=== PATIENT | male | born 1950 | race Two or more races ===

== ENCOUNTER 2023-04-07 16:27 | Emergency (ER) | payer OTHER ==
[2023-04-07 17:55] LABS: Absolute Lymphocytes (CBC) 0.8 K/uL (0.7-4.9); Hematocrit 37.6 % (39.6-49.0); Lymphocytes % 13.9 % (15.3-44.8); MCV 92.6 fL (80-100); MPV 9.2 fL (7.6-11.3); RBC Red Blood Cell Count 4.06 M/uL (4.33-5.43)
[2023-04-07] MEDS ORDERED: NA CHLORIDE 0.9% 500 ML ONE (17:56)
[2023-04-07] MEDS ORDERED: FAMOTIDINE 20 MG/2 ML VIAL IV ONE (17:56)
[2023-04-07] MEDS ORDERED: METHYLPREDNISOLONE 125 MG INJ ONE (17:56)
[2023-04-07] MEDS ORDERED: predniSONE 20 MG TAB ONE (17:56)
[2023-04-07] MEDS ORDERED: DIPHENHYDRAMINE 50 MG/ML VIAL ONE (17:56)
[2023-04-07 18:05] LABS: Protime INR 1.2
--- NOTE | 2023-04-07 18:06 | RAD REPORT ---
EXAM DESCRIPTION: Adolph Single View04/07/2023 5:54 pm CLINICAL HISTORY: cough COMPARISON: none FINDINGS: The lungs appear clear of acute infiltrate. The heart is mildly to moderately enlarged. Postsurgical changes involve the chest. Pacemaker leads in place IMPRESSION: No acute abnormalities displayed
[2023-04-07 18:30] LABS: Albumin 3.5 g/dL (3.4-5.0); Bilirubin Direct 0.2 mg/dL (0-0.2); Bilirubin Indirect, Calculated 0.2 mg/dL (0.2-0.8); Bilirubin Total 0.4 mg/dL (0.2-1.0); Magnesium 2.6 mg/dL (1.6-2.4); Potassium 4.1 mEq/L (3.5-5.1); Protein, Total 6.9 g/dL (6.4-8.2); Thyroid Stimulating Hormone 2.32 uIU/mL (0.358-3.740); Troponin High Sensitivity 23.9 pg/mL (<58.9)
[2023-04-07] MEDS ORDERED: CEFAZOLIN SODIUM 1 GM/VIAL ONE (18:47)
[2023-04-07] MEDS ORDERED: CEPHALEXIN 250 MG CAP ONE (18:47)
--- NOTE | 2023-04-07 19:06 | ER ---
Nurse's Notes [facility] Name: Estrada Workman Age: 72 yrs Sex: Male : 1950 Arrival Date: 04/07/2023 Time: 16:27 Bed 19 Private MD: Diagnosis: Insect bite (nonvenomous) of ankle;Presence of cardiac pacemaker-DEFIBRILLATOR;Insect allergy status Presentation: 04/07 16:40 Chief complaint: Patient states: "I was mowing grass this morning, and was standing in [facility] a pile of fire ants. They started biting on my right foot and a few on my left. 1 hr after getting bit, my heart is acting up. SOB, my left jaw hurts, arm is cramping, my heart feels like it's double pumping. I can feel my pacemaker having to work extra.". Coronavirus screen: Vaccine status: Patient reports receiving the 2nd dose of the covid vaccine. Ebola Screen: No symptoms or risks identified at this time. Initial Sepsis Screen: Does the patient meet any 2 criteria? No. Patient's initial sepsis screen is negative. Does the patient have a suspected source of infection? No. Patient's initial sepsis screen is negative. Risk Assessment: Do you want to hurt yourself or someone else? Patient reports no desire to harm self or others. Onset of symptoms was April 07, 2023. 16:40 Method Of Arrival: Ambulatory [facility] 16:40 Acuity: LEANN 3 mb9 Triage Assessment: 16:44 Bite description: bite sustained to right foot and left foot by a fire ant. General: mb9 Appears in no apparent distress. Behavior is calm, cooperative. Pain: Complains of pain in right foot and left foot. EENT: No signs and/or symptoms were reported regarding the EENT system. Neuro: Mayer Agitation-Sedation Scale (RASS): 0 - Alert and Calm Level of Consciousness is awake, alert, obeys commands, Oriented to person, place, time, situation, Appropriate for age. Cardiovascular: Reports shortness of breath. Respiratory: Airway is patent Respiratory effort is even, unlabored, Respiratory pattern is regular, symmetrical. Derm: Skin is pink, warm \\T\\ dry. Musculoskeletal: Range of motion: intact in all extremities. Injury Description: Bite sustained to right foot and left foot caused by a fire ant, is superficial. 19:25 Bite description: animal information: vaccination(s) is not applicable. rv Historical: - Allergies: 16:42 Losartan; mb9 16:42 Lisinopril; mb9 - Home Meds: 16:42 carvedilol oral [Active]; atorvastatin oral [Active]; Plavix Oral [Active]; mb9 - PMHx: 16:42 Myocardial infarction; Bladder cancer; mb9 - PSHx: 16:42 Pacemaker; Stents x 12; mb9 - Immunization history:: Adult Immunizations up to date. - Social history:: Smoking status: Patient denies any tobacco usage or history of. Screenin:43 [facility] ED Fall Risk Assessment (Adult) History of falling in the last 3 months, sg5 including since admission No falls in past 3 months (0 pts). Abuse screen: Denies threats or abuse. Nutritional screening: No deficits noted. Tuberculosis screening: No symptoms or risk factors identified. Assessment: 18:43 General: Appears in no apparent distress. comfortable, Behavior is calm, cooperative, sg5 appropriate for age. Pain: Complains of pain in right leg and anterior aspect of right ankle and right ogmez and medial aspect of right calf and right Achilles and right calf and right ankle and lateral aspect of right calf and left foot and right foot. Neuro: Level of Consciousness is awake, alert, obeys commands, Oriented to person, place, time, situation, Appropriate for age. Cardiovascular: Capillary refill < 3 seconds Patient's skin is warm and dry. Respiratory: Airway is patent Trachea midline Respiratory effort is even, unlabored. GI: No signs and/or symptoms were reported involving the gastrointestinal system. : No signs and/or symptoms were reported regarding the genitourinary system. EENT: No signs and/or symptoms were reported regarding the EENT system. Derm: Skin is intact, redness and inflammation to bilateral lower legs. Vital Signs: 16:40 BP 124 / 77; Pulse 68; Resp 18; Temp 98.2; Pulse Ox 100% on R/A; Weight 79.38 kg; mb9 Height 5 ft. 9 in. ; Pain 8/10; 18:43 BP 125 / 78; Pulse 78; Resp 16; Pulse Ox 98% on R/A; sg5 16:40 Body Mass Index 25.84 (79.38 kg, 175.26 cm) mb9 16:40 Pain Scale: Adult mb9 [place] Coma Score: 19:25 Eye Response: spontaneous(4). Motor Response: obeys commands(6). Verbal Response: rv oriented(5). Total: 15. ED Course: 16:31 Patient arrived in ED. am2 16:42 Triage completed. mb9 16:44 Arm band placed on. mb9 16:49 Shane Arcos MD is Attending Physician. gavin 17:17 Ekaterina Ramey RN is Primary Nurse. sg5 17:42 Inserted saline lock: 20 gauge in right antecubital area, using aseptic technique. sg5 Blood collected. 17:56 XRAY Chest (1 view) In Process Unspecified. EDMS 18:43 Patient has correct armband on for positive identification. Call light in reach. Side sg5 rails up X 1. Valuables Left with patient. Provided Education on: medication, IV, lab testing. 19:06 Pj Luciano MD is Referral Physician. gavin 19:25 No provider procedures requiring assistance completed. IV discontinued, intact, rv bleeding controlled, No redness/swelling at site. Pressure dressing applied. Administered Medications: 17:57 Drug: diphenhydrAMINE IVP 25 mg Route: IVP; Site: right antecubital; sg5 19:24 Follow up: Response: No adverse reaction; Marked relief of symptoms rv 17:57 Drug: MethylPrednisoLONE IVP 125 mg Route: IVP; Site: right antecubital; sg5 19:24 Follow up: Response: No adverse reaction; Marked relief of symptoms rv 17:57 Drug: predniSONE PO 40 mg Route: PO; sg5 19:24 Follow up: Response: No adverse reaction; Marked relief of symptoms rv 17:58 Drug: NS 0.9% IV 500 ml Route: IV; Rate: bolus; Site: right antecubital; sg5 19:24 Follow up: IV Status: Order to discontinue infusion rv 17:58 Drug: Famotidine IVP 20 mg Route: IVP; Site: right antecubital; sg5 19:24 Follow up: Response: No adverse reaction; Marked relief of symptoms rv 18:42 Drug: ceFAZolin IVPB 1 grams Route: IVPB; Site: right antecubital; sg5 19:25 Follow up: Response: No adverse reaction; Marked relief of symptoms; IV Status: rv Completed infusion 18:42 Drug: Cephalexin PO 500 mg Route: PO; sg5 19:25 Follow up: Response: No adverse reaction; Marked relief of symptoms rv Medication: 16:45 VIS not applicable for this client. mb9 Outcome: 19:06 Discharge ordered by . gavin 19:26 Discharged to home ambulatory. rv 19:26 Condition: improved 19:26 Discharge instructions given to patient, Instructed on discharge instructions, follow up and referral plans. medication usage, Demonstrated understanding of instructions, follow-up care, medications, Prescriptions given X 4. 19:26 Patient left the ED. rv Signatures: Dispatcher [employer] EDMS Shane Arcos MD MD cha Moreno, Amanda am2 Simeon Ramirez RN RN rv Vidhya Hardwick RN RN mb9 Ekaterina Ramey RN RN sg5 Corrections: (The following items were deleted from the chart) 16:44 16:42 PMHx: Hypertensive disorder; mb9 mb9
--- NOTE | 2023-04-07 19:06 | EDPHYS ---
Physician Documentation [facility] Name: Estrada Workman Age: 72 yrs Sex: Male : 1950 Arrival Date: 04/07/2023 Time: 16:27 Bed 19 Private MD: ED Physician Shane Arcos HPI: 04/07 18:10 This 72 yrs old Male presents to ER via Ambulatory with complaints of Insect gavin Bite - fireants, Allergic Reaction, Irregular Pulse. 18:10 The patient presents with itching, localized swelling, rash. Onset: The gavin symptoms/episode began/occurred just prior to arrival, this morning. Associated signs and symptoms: The patient has no apparent associated signs or symptoms. Possible causes: ants. At home the patient or guardian has treated the symptoms with nothing. Severity of symptoms: At their worst the symptoms were mild moderate in the emergency department the symptoms have improved mildly. The patient has not experienced similar symptoms in the past. Historical: - Allergies: 16:42 Losartan; mb9 16:42 Lisinopril; mb9 - Home Meds: 16:42 carvedilol oral [Active]; atorvastatin oral [Active]; Plavix Oral [Active]; mb9 - PMHx: 16:42 Myocardial infarction; Bladder cancer; mb9 - PSHx: 16:42 Pacemaker; Stents x 12; mb9 - Immunization history:: Adult Immunizations up to date. - Social history:: Smoking status: Patient denies any tobacco usage or history of. ROS: 18:13 Constitutional: Negative for fever, chills, and weight loss, Eyes: Negative for injury, gavin pain, redness, and discharge, ENT: Negative for injury, pain, and discharge, Neck: Negative for injury, pain, and swelling, Cardiovascular: Negative for chest pain, palpitations, and edema, Respiratory: Negative for shortness of breath, cough, wheezing, and pleuritic chest pain, Abdomen/GI: Negative for abdominal pain, nausea, vomiting, diarrhea, and constipation, Back: Negative for injury and pain, : Negative for injury, bleeding, discharge, and swelling, Neuro: Negative for headache, weakness, numbness, tingling, and seizure, Psych: Negative for depression, anxiety, suicide ideation, homicidal ideation, and hallucinations, Allergy/Immunology: Negative for hives, rash, and allergies, Endocrine: Negative for neck swelling, polydipsia, polyuria, polyphagia, and marked weight changes. 18:13 MS/extremity: Positive for erythema, pain, swelling, tenderness, of the lateral aspect of right calf, right ankle, right calf, right Achilles, medial aspect of right calf, right gomez and anterior aspect of right ankle. Exam: 18:13 Constitutional: This is a well developed, well nourished patient who is awake, alert, gavin and in no acute distress. Head/Face: Normocephalic, atraumatic. Eyes: Pupils equal round and reactive to light, extra-ocular motions intact. Lids and lashes normal. Conjunctiva and sclera are non-icteric and not injected. Cornea within normal limits. Periorbital areas with no swelling, redness, or edema. ENT: Nares patent. No nasal discharge, no septal abnormalities noted. Tympanic membranes are normal and external auditory canals are clear. Oropharynx with no redness, swelling, or masses, exudates, or evidence of obstruction, uvula midline. Mucous membranes moist. Neck: Trachea midline, no thyromegaly or masses palpated, and no cervical lymphadenopathy. Supple, full range of motion without nuchal rigidity, or vertebral point tenderness. No Meningismus. Chest/axilla: Normal chest wall appearance and motion. Nontender with no deformity. No lesions are appreciated. Cardiovascular: Regular rate and rhythm with a normal S1 and S2. No gallops, murmurs, or rubs. Normal PMI, no JVD. No pulse deficits. Respiratory: Lungs have equal breath sounds bilaterally, clear to auscultation and percussion. No rales, rhonchi or wheezes noted. No increased work of breathing, no retractions or nasal flaring. Abdomen/GI: Soft, non-tender, with normal bowel sounds. No distension or tympany. No guarding or rebound. No evidence of tenderness throughout. Back: No spinal tenderness. No costovertebral tenderness. Full range of motion. Male : Normal genitalia with no discharge or lesions. MS/ Extremity: Pulses equal, no cyanosis. Neurovascular intact. Full, normal range of motion. Neuro: Awake and alert, GCS 15, oriented to person, place, time, and situation. Cranial nerves II-XII grossly intact. Motor strength 5/5 in all extremities. Sensory grossly intact. Cerebellar exam normal. Normal gait. Psych: Awake, alert, with orientation to person, place and time. Behavior, mood, and affect are within normal limits. 18:13 Skin: Appearance: normal except for affected area, Color: normal in color, Temperature: normal temperature, Moisture: normal moisture, petechiae, not noted, ecchymosis, not noted, flushing, not noted, injury, bite(s), superficial, of the right leg. 18:28 ECG was reviewed by the Attending Physician. [facility] Vital Signs: 16:40 BP 124 / 77; Pulse 68; Resp 18; Temp 98.2; Pulse Ox 100% on R/A; Weight 79.38 kg; mb9 Height 5 ft. 9 in. ; Pain 8/10; 18:43 BP 125 / 78; Pulse 78; Resp 16; Pulse Ox 98% on R/A; sg5 16:40 Body Mass Index 25.84 (79.38 kg, 175.26 cm) mb9 16:40 Pain Scale: Adult mb9 Donie Coma Score: 19:25 Eye Response: spontaneous(4). Motor Response: obeys commands(6). Verbal Response: rv oriented(5). Total: 15. MDM: 16:49 Patient medically screened. [facility] 18:14 Differential diagnosis: anaphylaxis, angioedema, Arrhythmias bronchospasm, abrasion, gavin cellulitis, Hereditary Angioedema urticaria, Vasovagal Reactions. Data reviewed: vital signs, nurses notes, lab test result(s), EKG, radiologic studies, plain films. Consideration of Admission/Observation Escalation of care including admission/observation considered. I considered the following discharge prescriptions or medication management in the emergency department Medications were administered in the Emergency Department. See MAR. Independent interpretation of the following test(s) in the Emergency Department EKG: See my EKG interpretation above. Test considered but Not performed: Ultrasound no bilateral venous dopples. Care significantly affected by the following chronic conditions: Hypertension, pm, cac, mi. Counseling: I had a detailed discussion with the patient and/or guardian regarding: the historical points, exam findings, and any diagnostic results supporting the discharge/admit diagnosis, lab results, radiology results, the need for outpatient follow up, for definitive care, a ham curer, a family practitioner. 04/07 16:53 Order name: Basic Metabolic Panel; Complete Time: 19:05 04/07 16:53 Order name: CBC with Diff; Complete Time: 19:05 04/07 16:53 Order name: LFT's; Complete Time: 19:05 [facility] 04/07 16:53 Order name: Magnesium; Complete Time: 19:05 04/07 16:53 Order name: NT PRO-BNP; Complete Time: 19:05 04/07 16:53 Order name: PT-INR; Complete Time: 19:05 04/07 16:53 Order name: Troponin HS; Complete Time: 19:05 04/07 16:53 Order name: TSH; Complete Time: 19:05 04/07 16:53 Order name: XRAY Chest (1 view); Complete Time: 19:05 04/07 16:53 Order name: EKG; Complete Time: 17:12 04/07 16:53 Order name: Cardiac monitoring; Complete Time: 19:24 04/07 16:53 Order name: EKG - Nurse/Tech; Complete Time: 16:56 04/07 16:53 Order name: IV Saline Lock; Complete Time: 17:41 [facility] 04/07 16:53 Order name: Labs collected and sent; Complete Time: 17:41 04/07 16:53 Order name: O2 Per Protocol; Complete Time: 19:24 04/07 16:53 Order name: O2 Sat Monitoring; Complete Time: 19:24 [facility] EC:28 Rate is 63 beats/min. Rhythm is regular. QRS [place] is Normal. [place] interval is normal. QRS gavin interval is normal. QT interval is normal. No Q waves. T waves are Inverted. No ST changes noted. Clinical impression: NSR w/ Non-specific ST/T Changes and No evidence of ischemia. Interpreted by me. Reviewed by me. Administered Medications: 17:57 Drug: diphenhydrAMINE IVP 25 mg Route: IVP; Site: right antecubital; sg5 19:24 Follow up: Response: No adverse reaction; Marked relief of symptoms rv 17:57 Drug: MethylPrednisoLONE IVP 125 mg Route: IVP; Site: right antecubital; sg5 19:24 Follow up: Response: No adverse reaction; Marked relief of symptoms rv 17:57 Drug: predniSONE PO 40 mg Route: PO; sg5 19:24 Follow up: Response: No adverse reaction; Marked relief of symptoms rv 17:58 Drug: NS 0.9% IV 500 ml Route: IV; Rate: bolus; Site: right antecubital; sg5 19:24 Follow up: IV Status: Order to discontinue infusion rv 17:58 Drug: Famotidine IVP 20 mg Route: IVP; Site: right antecubital; sg5 19:24 Follow up: Response: No adverse reaction; Marked relief of symptoms rv 18:42 Drug: ceFAZolin IVPB 1 grams Route: IVPB; Site: right antecubital; sg5 19:25 Follow up: Response: No adverse reaction; Marked relief of symptoms; IV Status: rv Completed infusion 18:42 Drug: Cephalexin PO 500 mg Route: PO; sg5 19:25 Follow up: Response: No adverse reaction; Marked relief of symptoms rv Disposition Summary: 04/07/23 19:06 Discharge Ordered Location: Home gavin Problem: new gavin Symptoms: have improved gavin Condition: Stable gavin Diagnosis - Insect bite (nonvenomous) of ankle gavin - Presence of cardiac pacemaker - DEFIBRILLATOR gavin - Insect allergy status [facility] Followup: gavin - With: Private Physician - When: 2 - 3 days - Reason: Recheck today's complaints, Continuance of care, Re-evaluation by your physician Followup: gavin - With: - When: 2 - 3 days - Reason: Recheck today's complaints, Re-evaluation by your physician Discharge Instructions: - Discharge Summary Sheet [facility] - Allergies, Adult gavin - Insect Bite, Adult, [id number] [facility] - Insect Bite, Adult [facility] - Allergies, Adult, [id number] [facility] Forms: - Medication Reconciliation Form [facility] - Thank You Letter [facility] - Antibiotic Education [facility] - Prescription Opioid Use [facility] - Patient Portal Instructions [facility] Prescriptions: - Benadryl 25 mg Oral Capsule - take 1 capsule by ORAL route every 6 hours As needed; 30 tablet; Refills: 0, [facility] Product Selection Permitted - Cephalexin 500 mg Oral Capsule - take 1 capsule by ORAL route every 6 hours for 7 days; 28 capsule; Refills: 0, [facility] Product Selection Permitted - Pepcid 20 mg Oral Tablet - take 1 tablet by ORAL route every 12 hours for 10 days; 20 tablet; Refills: 0, [facility] Product Selection Permitted - Prednisone 20 mg Oral Tablet - take 2 tablets by ORAL route once daily for 4 days; 8 tablet; Refills: 0, [facility] Product Selection Permitted Signatures: Dispatcher [employer] Shane Sampson MD MD cha Breneman, Vidhya Church RN RN mb9 Ekaterina Ramey RN RN sg5 Simeon Ramirez RN rv Corrections: (The following items were deleted from the chart) 16:44 16:42 PMHx: Hypertensive disorder; [email or web address] mb9
[2023-04-07 23:05] VITALS: TEMP 98.2
[2023-04-07 23:07] VITALS: BP 125/78; O2SAT 98
--- NOTE | 2023-04-08 20:40 | EKG ---
Test Date: 2023-04-07 Test Time: 16:53:17 Glove Turner: JAZZMINE MEASUREMENT RESULTS: Intervals: Rate: 63 IA: 180 QRSD: 126 QT: 418 QTc: 427 [place]: P: 78 IA: 180 QRS: 47 T: 126 INTERPRETIVE STATEMENTS: Normal sinus rhythm Nonspecific intraventricular block Inferior infarct, age undetermined T wave abnormality, consider lateral ischemia Abnormal ECG No previous ECG available for comparison Electronically Signed On 04-08-23 20:37:50 CDT by Edison Reese
== END 2023-04-07 19:26 | disposition home or self-care (01) ==
LOC: ER 16:27
DX: S90.561A Insect bite (nonvenomous), right ankle, initial encounter (principal); Z91.038 Other insect allergy status; Z95.810 Presence of automatic (implantable) cardiac defibrillator; Z95.5 Presence of coronary angioplasty implant and graft
CPT/HCPCS: 96365; 96361; 93005; 85025; 80048; 36415; 83735; 85610; 80076; 84443; 84484; 83880; 71045; 96375; 99284; J7512; J1200; J2930; J7040; J0690